=== PATIENT | male | born 1975 | race Caucasian/White ===

== ENCOUNTER 2020-05-20 07:44 | Outpatient (CLI) | payer OTHER, SELFPAY ==
--- NOTE | ~2020-05-20 | US_ITS ---
US abdomen complete EXAMINATION: US Abdomen Complete INDICATION: Epigastric pain PROCEDURE: Realtime High Resolution abdomen ultrasound. COMPARISON: CT dated 01/12/2019 FINDINGS: Gallbladder within normal limits. No gallstones, pericholecystic fluid, gallbladder wall t hickening or biliary dilatation. Common bile duct measures 3 mm. Liver echotexture is increased, consistent with steatosis.. Pancreas within normal limits. Pancreat ic tail is obscured by bowel gas. Spleen is unremarkeable. Renal echotexture is within normal limits bilaterally without hydronephrosis, contour deforming mass or renal stone. Right kidney measures 10. 9 cm. Left kidney measures 10.6 cm. Visualized aspects of the aorta and IVC are within normal limits. Portal vein is patent. No sonograph ic Antonio's sign indicated by the technologist. IMPRESSION: 1: Hepatic steatosis. Reviewed, dictated and finalized at location B. IMPRESSION: 1: Hepatic steatosis.
--- NOTE | ~2020-05-20 | XR_ITS ---
EXAMINATION: XR UGIAC w small bowel EXAM DATE: 05/20/2020 09:29 INDICATION: R10.13 - Epigastric pain . Left upper quadrant pain. TECHNIQUE: Equipment Processor radiograph was acquired. Standard single and double contrast barium upper GI examina tion was performed followed by small bowel series. Spot images of the terminal ileum were acquired. Pulsed dose reduction fluoroscopy was used with fluoroscopic time of 0.6 minutes. A total of 106 queta ges obtained for the exam. The DAP for this procedure was 37 Gycm2. There is no prior study for com parison. FINDINGS: There is no esophageal stricture, diverticulum or mass identified. Gastroesophageal juncti on is normal in appearance. Reflux was not demonstrated during this examination. The stomach has a normal appearance without evidence of mass lesion, ulceration or filling defect. T here is normal rugal fold pattern. The duodenum and duodenal sweep are normal in appearance. Ileal and jejunal fold patterns are normal. There is no small bowel wall thickening or mass effect d isplacing small bowel. There are no intraluminal filling defects identified. There is no small alla l dilation. Terminal ileum is normal in appearance. Contrast reached the colon between 15 and 30 mi nutes, normal transit time. IMPRESSION: Normal exam. Reviewed, dictated and finalized at location A. IMPRESSION: Normal exam.
== END 2020-05-20 07:45 | disposition home or self-care (01) ==
PROVIDERS: PCP Internal Medicine; Visit Provider Internal Medicine
DX: R10.13 Epigastric pain (principal); K76.0 Fatty (change of) liver, not elsewhere classified
CPT/HCPCS: 74246; 74248; 76700

== ENCOUNTER 2021-01-17 13:21 | Outpatient (CLI) | payer BC, SELFPAY ==
--- NOTE | ~2021-01-17 | XR_ITS ---
EXAMINATION: XR lumbar spine 2-3V DATE: 01/17/2021 13:46 INDICATION: Low back pain. TECHNIQUE: 3 views of lumbar spine were obtained. COMPARISON: CT abdomen and pelvis 01/12/2019, chest 2 views 03/23/2016 FINDINGS: There are 12 pairs of ribs. L5 is a transitional segment. Vertebral body heights are normal . There is mildly decreased disc height at L4-L5. There is multilevel facet joint osteoarthritis, sev ere bilaterally at L4-L5. IMPRESSION: 1. Mild lumbar spondylosis. Reviewed, dictated and finalized at location A. 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 Mild lumbar spondylosis.
--- NOTE | ~2021-01-17 | XR_ITS ---
EXAMINATION: XR pelvis 1-2V DATE: 01/17/2021 13:46 INDICATION: Low back pain, unspecified. TECHNIQUE: An anteroposterior view of the pelvis was obtained on 2 radiographs. COMPARISON: CT abdomen and pelvis 01/12/2019 FINDINGS: Bone alignment is normal. No fracture. There is mild osteoarthritis of the hips. IMPRESSION: 1. Mild osteoarthritis of the hips. Reviewed, dictated and finalized at location A. FOREMAN
== END 2021-01-17 13:22 | disposition home or self-care (01) ==
LOC: ANHIMG 13:30
PROVIDERS: PCP Internal Medicine; Visit Provider Internal Medicine
DX: R10.2 Pelvic and perineal pain (principal); M16.0 Bilateral primary osteoarthritis of hip; M47.816 Spondylosis without myelopathy or radiculopathy, lumbar region
CPT/HCPCS: 72100; 72170

== ENCOUNTER 2021-02-07 08:36 | Outpatient (CLI) | payer BC, SELFPAY ==
--- NOTE | 2021-02-07 09:10 | EST_ITS ---
Patient Info Name: Ranjan Temple Age: 45 years : 1975 Gender: Male Ht: 69 in Wt: 208 lbs BSA: 2.17 m2 HR: 75 bpm BP: 126 / 101 mmHg Heart Rhythm: Sinus Rhythm Exam Date: 02/07/2021 9:19 AM Exam Location: [facility] Stress Patient Status: Outpatient Admit Date: 02/07/2021 Staff Ordering Physician: Shadi Reeves MD Attending Provider: Shadi Reeves MD Exercise Technologist: Idalia Sanchez CT Exercise Physician: Delbert Yun DO Exam Type: CA stress test treadmill Study Info Indications R07.9 - Chest pain, unspecified An exercise stress test was performed. Summary 1. 1. Negative Shin exercise stress test for ischemic ST changes by ECG criteria. 2. 2. Good functional capacity, achieving 10 METs of workload. 3. 3. Appropriate HR response to exercise. 4. 4. Appropriate HR recovery at 1 minute post exercise. 5. 5. No imaging with stress testing. 6. 6. Patient informed of the above results. Protocol: Shin Stress ECG Details Stage: REST Duration (min): 4 min : 35 sec Speed (mph): 0.0 Grade (%): 0 HR (bpm): 71 SBP (mmHg): 151 DBP (mmHg): 103 METS: --- Stage: REST Duration (min): 17 min : 15 sec Speed (mph): 0.0 Grade (%): 0 HR (bpm): 95 SBP (mmHg): 126 DBP (mmHg): 101 METS: --- Stage: STAGE 1 Duration (min): 1 min : 0 sec Speed (mph): 1.7 Grade (%): 10 HR (bpm): 108 SBP (mmHg): 126 DBP (mmHg): 101 METS: --- Stage: STAGE 1 Duration (min): 2 min : 0 sec Speed (mph): 1.7 Grade (%): 10 HR (bpm): 113 SBP (mmHg): 126 DBP (mmHg): 101 METS: --- Stage: STAGE 1 Duration (min): 3 min : 0 sec Speed (mph): 1.7 Grade (%): 10 HR (bpm): 117 SBP (mmHg): 158 DBP (mmHg): 101 METS: --- Stage: STAGE 2 Duration (min): 1 min : 0 sec Speed (mph): 2.5 Grade (%): 12 HR (bpm): 125 SBP (mmHg): 158 DBP (mmHg): 101 METS: --- Stage: STAGE 2 Duration (min): 2 min : 0 sec Speed (mph): 2.5 Grade (%): 12 HR (bpm): 137 SBP (mmHg): 181 DBP (mmHg): 101 METS: --- Stage: STAGE 2 Duration (min): 3 min : 0 sec Speed (mph): 2.5 Grade (%): 12 HR (bpm): 141 SBP (mmHg): 181 DBP (mmHg): 101 METS: --- Stage: STAGE 3 Duration (min): 1 min : 0 sec Speed (mph): 3.4 Grade (%): 14 HR (bpm): 150 SBP (mmHg): 183 DBP (mmHg): 88 METS: --- Stage: STAGE 3 Duration (min): 2 min : 0 sec Speed (mph): 3.4 Grade (%): 14 HR (bpm): 157 SBP (mmHg): 183 DBP (mmHg): 88 METS: --- Stage: STAGE 3 Duration (min): 3 min : 0 sec Speed (mph): 3.4 Grade (%): 14 HR (bpm): 163 SBP (mmHg): 153 DBP (mmHg): 80 METS: --- Stage: RECOVERY Duration (min): 0 min : 59 sec Speed (mph): 0.0 Grade (%): 0 HR (bpm): 141 SBP (mmHg): 153 DBP (mmHg): 80 METS: ---
== END 2021-02-07 08:37 | disposition home or self-care (01) ==
PROVIDERS: PCP Internal Medicine; Visit Provider Internal Medicine
DX: R07.89 Other chest pain (principal)
CPT/HCPCS: 93017

== ENCOUNTER 2021-02-09 08:09 | Outpatient (CLI) | payer BC, SELFPAY ==
--- NOTE | ~2021-02-09 | CT_ITS ---
EXAMINATION: CT abdomen pelvis w con DATE: 02/09/2021 08:28 INDICATION: Left-sided abdomen pain TECHNIQUE: Computed tomography (CT) of the abdomen and pelvis was performed with 100 cc Omnipaque 350 intravenous contrast. The dose-length product was 808.15 mGy-cm. Automated exposure control and iter ative reconstruction technique were employed. COMPARISON: CT dated 01/12/2019. FINDINGS: Lung bases are unremarkable. Heart size normal. No significant pleural or pericardial effus ion. No significant vascular abnormality. No lymphadenopathy. Nonobstructive bowel gas pattern. Chata l appendix. Fatty infiltration of the liver. There are small subcentimeter hypodensities of the liver, too small to characterize, although likely cysts. Gallbladder is present. The spleen, pancreas, adrenal glands and kidneys are unremarkable. Tiny right renal cyst. No hydronephrosis. No free air or free fluid sma ll fat-containing umbilical hernia. No acute osseous abnormality. There is sacralization of L5. Grade 1 degenerative spondylolisthesis at L4-5. IMPRESSION: 1. No acute abdominal abnormality. Reviewed, dictated and finalized at location A. ATIONS ACCOUNTANT
== END 2021-02-09 08:10 | disposition home or self-care (01) ==
PROVIDERS: PCP Internal Medicine; Visit Provider Internal Medicine
DX: R10.9 Unspecified abdominal pain (principal); K76.0 Fatty (change of) liver, not elsewhere classified; M43.16 Spondylolisthesis, lumbar region
CPT/HCPCS: 74177; Q9967

== ENCOUNTER 2021-07-21 00:35 | Day surgery (SDC) | payer BC, SELFPAY ==
[2021-07-04 13:03] VITALS: BMI 30.2
[2021-07-21 10:05] VITALS: BP 141/85; PULSE 75; RESP 18; TEMP 36.9; O2SAT 98
[2021-07-21] MEDS: LACTATED RINGERS 1,000 ML 150 ML IV CONT (10:20)
--- NOTE | 2021-07-21 10:30 | WPDANESEPPF ---
Anes - Initial Pre Proc Eval Procedure: Operation Date: 07/21/21 11:00 Proposed Procedures p Esophagogastroduodenoscopy & Colonoscopy - Brian Blas MD Date/Time: 07/21/21 10:30 Surgeon: Brian Blas MD Pre Op Diagnosis: GERD, diverticulosis Patient Data Age: 45 Gender: M Height: 1.75 m Weight: 91.7 kg Last Vital Signs Temp 98.4 F 07/21/21 10:05 Pulse 75 07/21/21 10:05 Resp 18 07/21/21 10:05 BP 141/85 H 07/21/21 10:05 Pulse Ox 98 07/21/21 10:05 O2 Del Method Room Air 07/21/21 10:05 Allergies Allergy/AdvReac Type Severity Reaction Status Date / Time No Known Allergies Allergy Verified 07/21/21 10:02 Home Medications Medication Instructions Recorded Confirmed Type multivitamin 1 tablet PO DAILY 01/17/21 07/14/21 History omega-3 fatty acids 1,000 mg 2,000 mg PO DAILY 01/17/21 07/14/21 History capsule (Fish Oil Concentrate) rosuvastatin 40 mg tablet See Rx Instructions .Route 06/14/21 07/14/21 Rx .COMPLEX #90 tabs pantoprazole 40 mg tablet,delayed See Rx Instructions .Route 06/22/21 07/14/21 Rx release .COMPLEX #90 tabs bupropion HCl 150 mg 24 hr tablet, 150 mg PO QAM #90 tabs 07/12/21 07/21/21 Rx extended release (Wellbutrin XL) lorazepam 0.5 mg tablet 0.5 mg PO TID PRN anxiety #30 tabs 07/12/21 07/21/21 Rx Patient hx anesthesia problems: none Family hx anesthesia problems: none Results Review: All pre-operative results and documents have been reviewed as part of the pre-operative evaluation. [facility] Past Medical History Medical History Abdominal pain Abnormal finding of blood chemistry BMI 30.0-30.9,adult Chest pain Chest wall tenderness Chronic low back pain Diverticulosis of intestine, part unspecified, without perforation or abscess without bleeding DJD (degenerative joint disease), lumbar Dyspepsia Dysphagia Elevated blood pressure reading without diagnosis of hypertension Encounter for preventive health examination Encounter to establish care Epigastric abdominal pain Fatty liver FHx: prostate cancer GERD (gastroesophageal reflux disease) History of diverticulosis Hyperlipidemia Low back pain On residential drug therapy Prostate cancer screening Shortness of breath Snores Stress Surgical History Surgical History Hx of vasectomy Family History Family History Mother Patient's mother is in good health Father Patient's father is in good health Sibling Patient's brother is in good health Sibling Graves disease Grandparent Breast cancer Brain cancer Malignant neoplasm of prostate Acute myocardial infarction Social History Social History Smoking status: Never smoker Alcohol intake: current Drinks per week: 6 Alcohol use details: 1-2 drinks/week Substance use: never Substance use type: does not use Living arrangements: with family Spiritual care concerns: No Anes - Eval Final PreProcedure Day of Procedure 07/21/21 10:30 Patient weight: obese Heart: regular rate and rhythm Lungs: clear to auscultation Airway: Mallampati scale class II Neurological: alert and oriented Last oral intake: >/= 8 hours ASA classification: II Emergent: no Anesthetic plan: proceed Anesthesia type and monitoring: general GIVS and standard monitoring Results Review: All pre-operative results and documents have been reviewed as part of the pre-operative evaluation. Informed Consent: The patient's anesthetic plan and its attendant risks and benefits were discussed with the patient/family/POA. Questions were solicited and answers provided to the satisfaction of the patient/family/POA.
--- NOTE | 2021-07-21 10:34 | WPDGICN ---
Assessment and Plan Assessment and plan (1) Diverticulosis of intestine, part unspecified, without perforation or abscess without bleeding: Code(s): K57.90 - Diverticulosis of intestine, part unspecified, without perforation or abscess without bleeding Status: Acute Assessment and Plan: Patient known to have diverticular disease by previous imaging. May be associated with irritable bowel syndrome. Plan is for patient consider high-fiber diet with supplementation. Colonoscopy recommended at this time because of abdominal discomfort also because of age and neoplasia screening suggestions. (2) Dyspepsia: Code(s): R10.13 - Epigastric pain Status: Acute Assessment and Plan: Patient reports abdominal pain after eating associated with regurgitation. Pain is failed to completely improved with [id number] antacids. Plan is for EGD to assess more thoroughly. Further recommendations will be given after endoscopy. GI Consult Note Consult date/time: 07/21/21 10:34 Reason for consult: Abdominal pain, irregular bowel movements. HPI: Ranjan Temple is a 45 year old male Presents for both colonoscopy and EGD. Patient reports over many months has had abdominal discomfort. It is vague occurs after eating rather diffuse. He notices associated regurgitation. This is not associated with spicy or particular types of food. He denies any overt vomiting. He has had no bleeding. He has currently tried [id number] antacids with inconsistent results. Patient also notices irregular bowel movements. Previous imaging has suggested that he has diverticular disease. Both colonoscopy an EGD or requested. Patient has never had a screening exam prior to this. Review of Systems Review of Systems: Review of systems noncontributory patient does report stress associated with his mother's illness. [facility] Past Medical History Medical History Abdominal pain Abnormal finding of blood chemistry BMI 30.0-30.9,adult Chest pain Chest wall tenderness Chronic low back pain Diverticulosis of intestine, part unspecified, without perforation or abscess without bleeding DJD (degenerative joint disease), lumbar Dyspepsia Dysphagia Elevated blood pressure reading without diagnosis of hypertension Encounter for preventive health examination Encounter to establish care Epigastric abdominal pain Fatty liver FHx: prostate cancer GERD (gastroesophageal reflux disease) History of diverticulosis Hyperlipidemia Low back pain On long term care administrator drug therapy Prostate cancer screening Shortness of breath Snores Stress Surgical History Surgical History Hx of vasectomy Family History Family History Mother Patient's mother is in good health Father Patient's father is in good health Sibling Patient's brother is in good health Sibling Graves disease Grandparent Breast cancer Brain cancer Malignant neoplasm of prostate Acute myocardial infarction Social History Social History Smoking status: Never smoker Alcohol intake: current Drinks per week: 6 Alcohol use details: 1-2 drinks/week Substance use: never Substance use type: does not use Living arrangements: with family Spiritual care concerns: No Meds Home Medications and Allergies Home Medications Medication Instructions Recorded Confirmed Type multivitamin 1 tablet PO DAILY 01/17/21 07/14/21 History omega-3 fatty acids 1,000 mg 2,000 mg PO DAILY 01/17/21 07/14/21 History capsule (Fish Oil Concentrate) rosuvastatin 40 mg tablet See Rx Instructions .Route 06/14/21 07/14/21 Rx .COMPLEX #90 tabs pantoprazole 40 mg tablet,delayed See Rx Instructions .Route 06/22/21 07/14/21 Rx release .COMPLEX #90 tabs bupropi
[2021-07-21] MEDS: SIMETHICONE ORAL SUSPENSION 20 MG/0.3 ML 30 ML BOTTLE 0.6 ML IRRIGATION (11:34)
--- NOTE | 2021-07-21 11:40 | SUR.OPER ---
EGD start 1124 End 1126, Colonoscopy start 1131 end 1140
[2021-07-21 11:43] VITALS: BP 124/78; PULSE 80; RESP 18; O2SAT 96
[2021-07-21 11:53] VITALS: BP 120/80; PULSE 82; RESP 18; O2SAT 100
[2021-07-21 12:03] VITALS: BP 113/90; PULSE 72; RESP 20; O2SAT 99
== END 2021-07-21 12:17 | disposition home or self-care (01) ==
PROVIDERS: PCP Internal Medicine; Visit Provider Internal Medicine Gastroenterology
PROC: 0DJ08ZZ Inspection of Upper Intestinal Tract, Via Natural or Artificial Opening Endoscopic (ICD-10-PCS; CPT 43235; principal; 2021-07-21 11:00)
DX: Z12.11 Encounter for screening for malignant neoplasm of colon (principal); K64.8 Other hemorrhoids; K21.9 Gastro-esophageal reflux disease without esophagitis; K57.90 Diverticulosis of intestine, part unspecified, without perforation or abscess without bleeding; R10.13 Epigastric pain; M47.816 Spondylosis without myelopathy or radiculopathy, lumbar region; K76.0 Fatty (change of) liver, not elsewhere classified; Z85.46 Personal history of malignant neoplasm of prostate; E78.5 Hyperlipidemia, unspecified
CPT/HCPCS: 45378; 43239; 87081; J2704; J7120

== ENCOUNTER 2022-05-09 14:09 | Outpatient (CLI) | payer BC, SELFPAY ==
--- NOTE | ~2022-05-09 | XR_ITS ---
EXAM: XR abdomen obstructive series DATE: 05/09/2022 14:43 HISTORY: R10.9 - Unspecified abdominal pain, UMBILICAL PAIN X1 DAY . COMPARISON: None available. FINDINGS: Clear lung bases. Normal bowel gas pattern. No organomegaly. Multiple pelvic phleboliths. Degenerative lumbar disc disease. Mild bilateral hip osteoarthritis. IMPRESSION: No radiographic evidence of obstruction or ileus. Reviewed, dictated and finalized at location K.
== END 2022-05-09 14:10 | disposition home or self-care (01) ==
PROVIDERS: PCP Internal Medicine; Visit Provider Internal Medicine
DX: R10.9 Unspecified abdominal pain (principal); K59.00 Constipation, unspecified; R14.0 Abdominal distension (gaseous)
CPT/HCPCS: 74019

== ENCOUNTER 2022-07-17 11:55 | Outpatient (CLI) | payer BC, SELFPAY ==
--- NOTE | ~2022-07-17 | XR_ITS ---
Right Knee Technique: AP, lateral, and sunrise views were obtained. Clinical History: Pain Findings: No fracture or dislocation is seen. Osseous alignment is anatomic. Moderate tricompartmenta l osteoarthritis noted. Soft tissues are unremarkable. No joint effusion is seen. Impression: Moderate tricompartmental osteoarthritis. Reviewed, dictated and finalized at location . Impression: Moderate tricompartmental osteoarthritis.
--- NOTE | ~2022-07-17 | XR_ITS ---
Left Knee Technique: AP, lateral, and sunrise views were obtained. Clinical History: Pain Findings: No fracture or dislocation is seen. Osseous alignment is anatomic. Minimal tricompartmental degenerative changes present. Soft tissues are unremarkable. No joint effusion is seen. Impression: Minimal tricompartmental osteoarthritis. Reviewed, dictated and finalized at [facility]. Impression: Minimal tricompartmental osteoarthritis.
== END 2022-07-17 11:56 | disposition home or self-care (01) ==
PROVIDERS: PCP Internal Medicine; Visit Provider Internal Medicine
DX: M25.469 Effusion, unspecified knee (principal); M25.569 Pain in unspecified knee; M17.0 Bilateral primary osteoarthritis of knee
CPT/HCPCS: 73564

== ENCOUNTER → 2022-07-26 08:42 | Outpatient (CLI) | payer BC, SELFPAY ==
--- NOTE | ~2022-07-26 | MR_ITS ---
MRI of the left knee Clinical history: Pain Technique: Coronal proton density and proton density-weighted images, sagittal proton-density and T2 fat-sat images, and axial proton-density fat-saturated images were acquired. Findings: Anterior and posterior cruciate ligaments are intact. Medial collateral ligament and the la teral collateral ligament complex are intact. Popliteus tendon is intact. Lateral meniscus is intact, without evidence of tear. There is markedly diminutive body segment of th e medial meniscus, which could reflect complex tearing and/or sequela of prior partial meniscectomy. There is probable vertical tear of the free edge of the posterior horn of the medial meniscus, versus possibly postoperative change. There is moderate to high-grade chondral malacia the central aspect of the femoral trochlea. There is patchy mild chondromalacia patella. There is a small focal high-grade chondral lesion at the posteri or aspect of the lateral femoral condyle. Articular cartilage in the medial compartment is well prese rved. Bone marrow signals are unremarkable. Extensor mechanism is intact. Moderate joint effusion is present. No Linn's cyst. Impression: Postmastectomy change versus complex tearing of the body and posterior horn of the medial meniscus, a s noted above. Correlate with surgical history. Mild degenerative changes overall, as detailed above. Moderate joint effusion. Reviewed, dictated and finalized at location . Impression: Postmastectomy change versus complex tearing of the body and posterior horn of the medial meniscus, as noted above. Correlate with surgical history. Mild degenerative changes overall, as detailed above. Moderate joint effusion.
--- NOTE | ~2022-07-26 | MR_ITS ---
MRI of the right knee Clinical history: Pain Technique: Coronal proton density and proton density-weighted images, sagittal proton-density and T2 fat-sat images, and axial proton-density fat-saturated images were acquired. Findings: Anterior and posterior cruciate ligaments are intact. Medial collateral ligament and the la teral collateral ligament complex are intact. Popliteus tendon is intact. Lateral meniscus is intact, without evidence of tear. There is somewhat diminutive appearance of the body segment of the medial meniscus, which could reflect postmeniscectomy change. There is mild to moderate chondral thinning along the central aspect of the medial femoral condyle. A rticular cartilage in the lateral compartment demonstrates focal moderate defect at the posterior asp ect of the lateral femoral condyle. There is diffuse high-grade chondromalacia of the femoral trochle a with small areas of subchondral cystic change. There is high-grade chondromalacia along the lateral patellar facet, with mild chondromalacia at the patellar apex and superiorly. There is cystic enthes opathic change at the insertions of the posterior and anterior cruciate ligaments at the proximal tib ia. There is an irregular/septated ganglion cyst posterior to the PCL measuring up to 2.9 cm in maxim um length. Extensor mechanism is intact. Small joint effusion. No Linn's cyst. Impression: Diminutive appearance of the bicipital medial meniscus could reflect postmeniscectomy change or possi santa complex tearing. Correlate with surgical history. Advanced degenerative change of the patellofemoral compartment, as detailed above. Mild to moderate d egenerative change of the medial and lateral compartment, as detailed above. Ganglion cyst posterior to the PCL, as detailed above. Small joint effusion. Reviewed, dictated and finalized at location . Impression: Diminutive appearance of the bicipital medial meniscus could reflect postmenisc ectomy change or possibly complex tearing. Correlate with surgical history. Advanced degenerative change of the patellofemoral compartment, as detailed abo ve. Mild to moderate degenerative change of the medial and lateral compartment, as detailed above. Ganglion cyst posterior to the PCL, as detailed above. Small joint effusion.
== END ==
PROVIDERS: PCP Internal Medicine; Visit Provider Internal Medicine
DX: M25.561 Pain in right knee (principal); M25.562 Pain in left knee; M25.462 Effusion, left knee; M25.461 Effusion, right knee; M67.461 Ganglion, right knee; R93.6 Abnormal findings on diagnostic imaging of limbs
CPT/HCPCS: 73721

== ENCOUNTER 2023-03-25 09:37 | Outpatient (CLI) | payer BC, SELFPAY ==
--- NOTE | ~2023-03-25 | US_ITS ---
EXAMINATION: US scrotum doppler DATE: 03/25/2023 11:02 INDICATION: Left testicular pain TECHNIQUE: Testicular sonogram utilizing grayscale and Doppler COMPARISON: None. FINDINGS: The right testis measures 5.1 x 2.4 x 2.5 cm. The left testis measures 4.7 x 2.5 x 3.3 cm. Symmetric normal grayscale appearance to both testes. There is normal vascular flow to both testes. The right e pididymis is normal with normal vascular flow. The left epididymis is normal with normal vascular reji w. Small bilateral hydroceles. No varicocele. IMPRESSION: 1. Small bilateral hydroceles with normal bilateral testes and epididymides. Reviewed, dictated and finalized at location A. NEL ACCOUNT MANAGER
[2023-03-25 10:02] LABS: Appearance Urine Clear (Clear); Bilirubin Urine Negative (Negative); Blood Urine Negative (Negative); Color Urine Yellow (Yellow); Glucose Urine UA Negative (Negative); Ketones Urine Negative (Negative); Leukocyte Esterase Ur Negative LEU/UL (Negative); Nitrate Urine Negative (Negative); Protein Urine Negative (Negative); Specific Grav Ur 1.026 (1.001-1.035); Urobilinogen Urine 0.2 mg/dL (<2.0)
[2023-03-25 10:11] LABS: Add Urine Microscopic? NO
[2023-03-25 10:46] LABS: Basophils Percent Auto 0.6 % (0.2-1.2); Eosinophils Absolute Auto 0.2 K/mm3 (0-0.3); Eosinophils Percent Auto 2.8 % (0-4.4); Hematocrit 45.3 % (42.0-52.0); Hemoglobin 15.2 g/dL (14.0-18.0); Immature Granulocyte Absolute 0.01 K/mm3 (0.00-0.031); Immature Granulocyte Percent A 0.1 % (0-0.5); Lymphocytes Absolute Auto 1.27 K/mm3 (0.9-3.2); Lymphocytes Percent Auto 18.1 % (18.3-44.2); Mean Corpuscular HGB Conc 33.6 g/dl (32-36); Mean Corpuscular Hemoglobin 30.7 pg (26-34); Mean Corpuscular Volume 91.5 fl (80-100); Monocytes Absolute Auto 0.8 K/mm3 (0.1-0.6); Monocytes Percent Auto 11.2 % (2.6-8.5); Neutrophils Absolute Auto 4.7 K/mm3 (1.3-6.7); Neutrophils Percent Auto 67.2 % (45.5-73.1); Platelet Count Result 205 k/mm3 (150-375); Red Blood Count 4.95 M/mm3 (4.6-6.20); Red Cell Distribution Width 12.2 % (11.5-14.5)
== END 2023-03-25 09:38 | disposition home or self-care (01) ==
LOC: ANHIMG 09:39
PROVIDERS: PCP Internal Medicine; Visit Provider Internal Medicine
DX: N50.812 Left testicular pain (principal); R30.0 Dysuria; N50.89 Other specified disorders of the male genital organs
CPT/HCPCS: 36415; 76870; 81003; 85025; 93976

== ENCOUNTER 2024-07-07 15:35 | Outpatient (CLI) | payer BC, SELFPAY ==
--- NOTE | ~2024-07-07 | XR_ITS ---
EXAM: XR ankle RT min 3V DATE: 07/07/2024 16:06 HISTORY: M25.571 - Pain in right ankle and joints of right foot . COMPARISON: None available. FINDINGS: Normal mineralization. No fracture or dislocation. No lytic or blastic lesion. Joint space s are maintained. No erosion or periosteal change. Soft tissues within normal limits. IMPRESSION: Unremarkable right ankle radiograph findings. Reviewed, dictated and finalized at location K.
--- OUTSIDE RECORDS SUMMARY | 2024-07-07 15:41 | XMS_ITS | Clinical Summary ---
Author Organization [facility] [place] [address] Address [address] [place] [id number] Care Team Providers Care Shipping Clerk/Admin Name Role Phone Shadi Reeves MD Primary Care Provider [phone] Allergies No known active allergies Medications rosuvastatin (CRESTOR) 40 mg tablet Take 40 mg by mouth daily 11/19/2021 Active Active Problems No known active problems Surgical History Surgery Date Site/Laterality Comments KNEE SURGERY Bilateral Medical History Medical History Date Comments Hyperlipidemia Social History Tobacco Use Types Packs/Day Years Used Date Smoking Tobacco: Never Assessed Sex and Gender Information Value Date Recorded Sex Assigned at Not on file Legal Sex Male 8:17 AM [employer] Gender Identity Not on file Sexual Orientation Not on file Obstetrics History Last Filed Vital Signs Vital Sign Reading Time Taken Comments Blood Pressure 138/86 01/08/2022 6:43 PM [employer] Pulse 108 01/08/2022 6:43 PM [employer] Temperature 36.7 C (98 F) 01/08/2022 6:43 PM [employer] Respiratory Rate 16 01/08/2022 6:43 PM [employer] Oxygen Saturation 99% 01/08/2022 6:43 PM [employer] Inhaled Oxygen Concentration - - Weight 92.1 kg (203 lb) 01/08/2022 6:43 PM [employer] Height 175.3 cm (5' 9 ) 01/08/2022 6:43 PM [employer] Body Mass Index 29.98 01/08/2022 6:43 PM [employer] Plan of Treatment Health Maintenance Due Date Last Done Comments Colon Cancer Screening-Colonoscopy 1975 Depression Screening 1975 Hepatitis C Screening 1975 DTaP/Tdap/Td Vaccine (1 - Tdap) 11/11/1986 Hepatitis B Screening 11/11/1993 Regular Well Visit/Exam 18-64 11/11/1993 Covid-19 Vaccine (2023-2 5 season) 2023 02/08/2021, 05/28/2020 Influenza Vaccine (Season Ended) 2024 Pneumococcal vaccine <65 Aged Out No longer eligible based on patient's age to complete this topic Insurance [employer] Care Teams Shipping Clerk/Admin Relationship Specialty Start Date End Date Shadi Reeves MD [id number] [place] [address] PCP - General Internal Medicine 01/08/22
--- OUTSIDE RECORDS SUMMARY | 2024-07-07 15:41 | XMS_ITS | Referral Summary ---
Author Organization [facility] [address] Address [address] [place] [id number] Care Team Providers Care Vp Publisher Development Name Role Phone Shadi Reeves MD Primary Care Provider [phone] Allergies No known active allergies Medications rosuvastatin (CRESTOR) 40 mg tablet Take 40 mg by mouth daily 11/19/2021 Active Active Problems No known active problems Social History Tobacco Use Types Packs/Day Years Used Date Smoking Tobacco: Never Assessed Sex and Gender Information Value Date Recorded Sex Assigned at Not on file Legal Sex Male 8:17 AM SLAT PICKLER Gender Identity Not on file Sexual Orientation Not on file Last Filed Vital Signs Vital Sign Reading Time Taken Comments Blood Pressure 138/86 01/08/2022 6:43 PM SLAT PICKLER Pulse 108 01/08/2022 6:43 PM SLAT PICKLER Temperature 36.7 C (98 F) 01/08/2022 6:43 PM SLAT PICKLER Respiratory Rate 16 01/08/2022 6:43 PM SLAT PICKLER Oxygen Saturation 99% 01/08/2022 6:43 PM SLAT PICKLER Inhaled Oxygen Concentration - - Weight 92.1 kg (203 lb) 01/08/2022 6:43 PM SLAT PICKLER Height 175.3 cm (5' 9 ) 01/08/2022 6:43 PM SLAT PICKLER Body Mass Index 29.98 01/08/2022 6:43 PM SLAT PICKLER Plan of Treatment Not on file Insurance [employer] [facility] FEDERAL Care Teams Vp Publisher Development Relationship Specialty Start Date End Date Shadi Reeves MD [address] [facility] [address] [facility] [facility] [place], [place] [id number] PCP - General Internal Medicine 01/08/22
--- OUTSIDE RECORDS SUMMARY | 2024-07-07 15:41 | XMS_ITS | Clinical Summary ---
Author Organization [facility] [employer] Address [address] [place] [address] Care Team Providers Care Car Installations Supervisor Name Role Phone Unavailable Primary Care Provider Unavailabl e Source Comments [facility] [employer],non-owned Affiliates and Associated Physician Practices is amultiple site organization consisting of ambulatory clinics and hospital sitesin [place], [place], [place]. This disclosure is being madepursuant to the Care Everywhere program and may not contain all information available regarding this patient. Last updated 17.[employer] Allergies No known active allergies Medications * Be aware that medications may not be up to date on this document. Alwaysverify current medications with the patient. celecoxib (CeleBREX) 200 MG capsule Take 1 (one) capsule by mouth 2 times daily LAST REFILL UNTIL SEEN IN THE OFFICE 60 capsule 12/02/2023 Active Active Problems Problem Noted Date Diagnosed Date Primary osteoarthritis of both knees 09/21/2022 Family History Relation Name Status Comments Father Alive Mother Alive Social History Tobacco Use Types Packs/Day Years Used Date Smoking Tobacco: Never Smokeless Tobacco: Never Sex and Gender Information Value Date Recorded Sex Assigned at Not on file Legal Sex Male 7:25 AM IDENTIFIER HORSE Gender Identity Not on file Sexual Orientation Not on file Last Filed Vital Signs Vital Sign Reading Time Taken Comments Blood Pressure 128/86 02/13/2018 10:14 AM IDENTIFIER HORSE Pulse 75 02/13/2018 10:14 AM IDENTIFIER HORSE Temperature 37 C (98.6 F) 02/13/2018 10:14 AM IDENTIFIER HORSE Respiratory Rate 16 01/12/2018 10:07 AM IDENTIFIER HORSE Oxygen Saturation 95% 01/12/2018 10:07 AM IDENTIFIER HORSE Inhaled Oxygen Concentration - - Weight 86.2 kg (190 lb) 02/13/2018 10:14 AM IDENTIFIER HORSE Height 175.3 cm (5' 9 ) 02/13/2018 10:14 AM IDENTIFIER HORSE Body Mass Index 28.06 02/13/2018 10:14 AM IDENTIFIER HORSE Plan of Treatment Health Maintenance Due Date Last Done Comments COLOGUARD (AGES 45-75) - COL ON CA SCREENING 1975 COLON MONITORING 1975 COLONOSCOPY - COLON CA SCREENING 1975 CT COLONOGRAPHY - COLON CA SCREENING 1975 Colorectal Cancer Screening 1975 FIT - COLON CA SCREENING 1975 FLEX SIG - COLON CA SCREENING 1975 LIPID TESTING 1975 HIV SCREENING 11/11/1990 HEPATITIS C SCREENING 11/07/1993 DTAP/TDAP/TD VACCINES (1 - Tdap) 11/11/1994 HEPATITIS B VACCINE (1 of 3 - 19+ 3-dose series) 11/11/1994 COVID-19 VACCINE (1 - 2023-2 5 season) 2023 DEPRESSION SCREENING 02/19/2024 INFLUENZA VACCINE (Season Ended) 2024 ZOSTER VACCINE (1 of 2) 11/11/2025 HIB VACCINE Aged Out No longer eligi ble based on patient's age to complete this topic HPV VACCINE Aged Out No longer eligi ble based on patient's age to complete this topic MENINGOCOCCAL (Group B) VACC INE SHARED DECISION-MAKING Aged Out No longer eligibl e based on patient's age to complete this topic MENINGOCOCCAL GROUPS A/C/Y/W VACCINE Aged Out No longer eligible b ased on patient's age to complete this topic PNEUMOCOCCAL VACCINE Aged Out No long er eligible based on patient's age to complete this topic Insurance [employer]
== END 2024-07-07 15:36 | disposition home or self-care (01) ==
LOC: ANHIMG 15:39
PROVIDERS: PCP Internal Medicine; Visit Provider Internal Medicine
DX: G89.29 Other chronic pain (principal); M25.571 Pain in right ankle and joints of right foot
CPT/HCPCS: 73610

== ENCOUNTER 2024-07-29 07:28 | Outpatient (CLI) | payer BC, SELFPAY ==
--- NOTE | ~2024-07-29 | US_ITS ---
Limited Abdominal Sonogram: Real-time sonographic imaging of the right upper quadrant was performed. Clinical History: Fatty liver Findings: The liver appears echogenic, with no evidence of mass lesion or bile duct dilatation. Main portal vein demonstrates normal direction of flow. The gallbladder is well distended, and appears no rmal with no evidence of gallstone or wall thickening. The common bile duct measures 4 mm. The visua lized pancreas, aorta, and IVC are unremarkable. Right kidney unremarkable. Impression: Diffuse fatty infiltration of liver. Reviewed, dictated and finalized at location M. Impression: Diffuse fatty infiltration of liver.
--- OUTSIDE RECORDS SUMMARY | 2024-07-29 07:31 | XMS_ITS | Clinical Summary ---
Author Organization [facility] Address [address] [place] [address] Care Team Providers Care Greenhouse Specialist Name Role Phone Unavailable Primary Care Provider Unavailabl e Source Comments [facility],non-owned Affiliates and Associated Physician Practices is amultiple site organization consisting of ambulatory clinics and hospital sitesin [place], [place], [place] and [place]. This disclosure is being madepursuant to the Care Everywhere program and may not contain all information available regarding this patient. Last updated [facility] Allergies No known active allergies Medications * [...] on file Legal Sex Male 7:25 AM PATROL MOTHER Gender Identity Not on file Sexual Orientation Not on file Last Filed Vital Signs Vital Sign Reading Time Taken Comments Blood Pressure 128/86 02/13/2018 10:14 AM PATROL MOTHER Pulse 75 02/13/2018 10:14 AM PATROL MOTHER Temperature 37 C (98.6 F) 02/13/2018 10:14 AM PATROL MOTHER Respiratory Rate 16 01/12/2018 10:07 AM PATROL MOTHER Oxygen Saturation 95% 01/12/2018 10:07 AM PATROL MOTHER Inhaled Oxygen Concentration - - Weight 86.2 kg (190 lb) 02/13/2018 10:14 AM PATROL MOTHER Height 175.3 cm (5' 9) 02/13/2018 10:14 AM PATROL MOTHER Body Mass Index 28.06 02/13/2018 10:14 AM PATROL MOTHER Plan of Treatment Health Maintenance Due Date [...]
== END 2024-07-29 07:29 | disposition home or self-care (01) ==
PROVIDERS: PCP Internal Medicine; Visit Provider Internal Medicine
DX: K76.0 Fatty (change of) liver, not elsewhere classified (principal)
CPT/HCPCS: 76705